=== PATIENT | male | born 1990 | race Two or more races ===

== ENCOUNTER 2025-05-22 13:17 | Emergency (ER) | payer OTHER ==
[~2025-05-22] VITALS: Ht 177.8 cm; Wt 88.5 kg
[2025-05-22 13:41] VITALS: BP 129/82; TEMP 98
[2025-05-22] MEDS ORDERED: PENICILLIN G BENZATHINE 2.4 MMU/4 ML ML IM ONE (14:26)
[2025-05-22] MEDS: PENICILLIN G BENZATHINE 2.4 MMU/4 ML ML IM ONE (14:36)
[2025-05-22 14:37] VITALS: O2SAT 100
== END 2025-05-22 14:38 | disposition home or self-care (01) ==
LOC: ER 13:26
DX: A53.9 Syphilis, unspecified (principal); F17.200 Nicotine dependence, unspecified, uncomplicated; Z60.2 Problems related to living alone
CPT/HCPCS: 99283; 96372; J0558